=== PATIENT | female | born 1985 | race Hispanic/Latino ===

== ENCOUNTER 2024-01-28 06:02 | Emergency (ER) | payer MEDICAID, OTHER ==
[~2024-01-28] VITALS: Ht 154.9 cm; Wt 102.5 kg
[2024-01-28 07:30] LABS: CREATININE 0.8 mg/dL (0.5-1.0)
[2024-01-28 07:30] LABS: BASOPHILS # (AUTO) 0.04 K/uL (0.00-0.20); BASOPHILS % (AUTO) 0.5 % (0.0-5.0); EOSINOPHILS # (AUTO) 0.27 K/uL (0.00-0.70); EOSINOPHILS % (AUTO) 3.3 % (0.0-8.0); HEMATOCRIT 41.3 % (36-48); IMMATURE GRANULOCYTE ABSOLUTE 0.02 K/uL (0-1); LYMPHOCYTES # (AUTO) 2.1 K/uL (1.0-4.8); LYMPHOCYTES % (AUTO) 25.4 % (21.0-51.0); MEAN CORPUSCULAR HEMOGLOBIN 30.4 pg (27.0-33.0); MEAN CORPUSCULAR HGB CONC 33.2 g/dL (32.0-36.0); MEAN CORPUSCULAR VOLUME 91.6 fL (79-99); MONOCYTES # (AUTO) 0.6 K/uL (0.1-1.0); MONOCYTES % (AUTO) 7.4 % (3.0-13.0); NEUTROPHILS # (AUTO) 5.1 K/uL (1.8-7.7); NEUTROPHILS % (AUTO) 63.2 % (40.0-77.0); PLATELET COUNT (AUTO) 330 K/uL (130-400); RED BLOOD CELL COUNT(AUTO) 4.51 MIL/uL (4.00-5.50); RED CELL DISTRIBUTION WIDTH 12.1 % (11.0-15.5); WHITE BLOOD COUNT (AUTO) 8.1 K/uL (4.8-10.8)
--- NOTE | 2024-01-28 07:32 | ERN ---
General Chief Complaint: Abdominal Pain Stated Complaint: C/O ABD PAIN WITH N X V ONSET 0500 THIS AM Time Seen by MD: 07:12 Source: patient History of Present Illness Initial Comments Patient is a 38-year-old female coming in to be evaluated for abdominal pain. Patient states that the pain began earlier this morning at five in the a.m. she localizes the pain in the right upper quadrant epigastric region she quantifies it at 8/10. She also states that she has been having this pain before. Allergies: Coded Allergies: No Known Drug Allergies (Unverified Allergy, Unknown, 11/01/15) Home Meds No Active Prescriptions or Reported Meds Past Medical History Past Medical History: No Pertinent History Past Surgical History: Unknown ROS Dictation CONSTITUTIONAL: No chills, no fever, no weakness, no diaphoresis, no malaise. HEAD/FACE: No signs of trauma. EENT: No eye pain, no blurred vision, no tearing, no double vision, no ear pain, no ear discharge, no nose pain, no nasal congestion, no throat pain, no throat swelling, no mouth pain. RESPIRATORY: No cough, no orthopnea, no SOB, no stridor, no wheezing. CARDIOVASCULAR: No chest pain, no edema, no palpitations, no syncope. GASTROINTESTINAL/ABDOMINAL: abdominal pain, no constipation, no diarrhea, nausea, no vomiting. GENITOURINARY: No abnormal discharge, no dysuria, no frequent urination, no hematuria. No complaints of pain in the genitals. MUSCULOSKELETAL: No back pain, no gout, no joint pain, no joint swelling, no muscle pain, no muscle stiffness, no neck pain. INTEGUMENTARY: No change in color, no change in hair/nails, no dryness, no lesion, no lumps, no rash. NEUROLOGICAL/PSYCH: No anxiety, not depressed, no emotional problem, no headache, no numbness, no pre-existing deficit, no history of seizures, no tremors, no weakness. HEMATOLOGIC/LYMPHATIC: Not anemic, no history of blood clots, no apparent bleeding, no bruising, glands not swollen. All Systems Negative, Except as Noted. Physical Exam Physical Exam Dictation VITAL SIGNS: Reviewed. GENERAL APPEARANCE: Alert, oriented x3, no acute distress, obese. HEAD AND FACE: Non-traumatic. EYES: PERRL, pink conjunctivas, eyelid no trauma, anterior chamber clear. EARS: Pinnas intact and no signs of trauma or erythema. Ear canals clear and no discharge. TMs no erythema. NOSE: No discharge, no bleeding. OROPHARYNX: Mouth normal, teeth no caries, tongue pink. Pharynx clear, no erythema. Tonsils no exudates, no abscesses noted. Mucous membrane moist. NECK: Supple, non-tender, no thyromegaly, no masses, no JVD, no bruits. BREAST: Deferred. CHEST: No tenderness, no crepitus, no paradoxical movement, no retractions. LUNGS: Clear, well-ventilated, symmetric, no rales, no wheezing, no rhonchi, no stridor, good breath sounds bilaterally. HEART: Regular rate, regular rhythm, no murmur, no gallops. VASCULAR: No peripheral edema. ABDOMEN: Soft, positive bowel sounds, nondistended, no guarding, right upper quadrant pain reproducible on palpation, epigastric pain reproducible on palpation, no rebound, no masses no hepatomegaly, no splenomegaly, no Ford's sign, no hernias. RECTAL: Deferred. GENITAL: Deferred. NEUROLOGICAL: Normal speech, gross motor function intact, gross sensory function intact. MUSCULOSKELETAL: Neck nontender, full range of motion, back nontender, full range of motion. EXTREMITIES: Nontender, full range of motion. SKIN: Color pink, dry, no turgor, no rash, no lacerations, no abrasions, no contusions. LYMPHATICS: Deferred. Results Laboratory and Microbiology Lab and Micro Result Laboratory Tests Test 01/28/24 06:19 01/28/24 06:30 01/28/24 07:20 01/28/24 07:33 Urine Color LIGHT-YELLOW (YELLOW) Urine Appearance CLEAR (CLEAR) Urine pH 5.0 (5.0-8.0) Urine Specific [place] 1.024 (1.001-1.031) Urine Protein NEGATIVE mg/dL (NEGATIVE) Urine Glucose (UA) NEGATIVE mg/dL (NEGATIVE) Urine Ketones NEGATIVE mg/dL (NEGATIVE) Urine Occult Blood SMALL (NEGATIVE) H Urine Nitrate NEGATIVE (NEGATIVE) Urine Bilirubin NEGATIVE mg/dL (NEGATIVE) Urine Urobilinogen 0.2 mg/dL (0.2-1.0) Urine Leukocyte Esterase NEGATIVE Jessica/uL Sodium Level 139 mmol/L (136-145) 140 mmol/L (136-145) Potassium Level 4.0 mmol/L (3.5-5.1) 4.4 mmol/L (3.5-5.1) Chloride Level 105 mmol/L (101-111) 104 mmol/L (101-111) Carbon Dioxide Level 28 mmol/L (21-32) 29 mmol/L (21-32) Blood Urea Nitrogen 16 mg/dL (7-18) 15 mg/dL (7-18) Creatinine 0.8 mg/dL (0.5-1.0) 0.8 mg/dL (0.5-1.0) Glomerular Filtration Rate Calc 97 mL/min (>90) 97 mL/min (>90) Random Glucose 113 mg/dL (70-105) H 115 mg/dL (70-105) H Total Calcium 8.7 mg/dL (8.5-10.1) 8.9 mg/dL (8.5-10.1) Lipase 38 U/L (16-77) White Blood Count 8.1 K/uL (4.8-10.8) Red Blood Count 4.51 MIL/uL (4.00-5.50) Hemoglobin 13.7 g/dL (12.0-16.0) Hematocrit 41.3 % (36-48) Mean Corpuscular Volume 91.6 fL (79-99) Mean Corpuscular Hemoglobin 30.4 pg (27.0-33.0) Mean Corpuscular Hemoglobin Concent 33.2 g/dL (32.0-36.0) Red Cell Distribution Width 12.1 % (11.0-15.5) Platelet Count 330 K/uL (130-400) Mean Platelet Volume 9.0 fL (7.5-10.5) Immature Granulocyte % (Auto) 0.2 % (0-1) Neutrophils (%) (Auto) 63.2 % (40.0-77.0) Lymphocytes (%) (Auto) 25.4 % (21.0-51.0) Monocytes (%) (Auto) 7.4 % (3.0-13.0) Eosinophils (%) (Auto) 3.3 % (0.0-8.0) Basophils (%) (Auto) 0.5 % (0.0-5.0) Neutrophils # (Auto) 5.1 K/uL (1.8-7.7) Lymphocytes # (Auto) 2.1 K/uL (1.0-4.8) Monocytes # (Auto) 0.6 K/uL (0.1-1.0) Eosinophils # (Auto) 0.27 K/uL (0.00-0.70) Basophils # (Auto) 0.04 K/uL (0.00-0.20) Absolute Immature Granulocyte (auto 0.02 K/uL (0-1) Nucleated Red Blood Cells 0.0 % (0.0-0.19) Total Bilirubin 0.3 mg/dL (0.2-1.0) Aspartate Amino Transf (AST/SGOT) 21 U/L (10-37) Alanine Aminotransferase (ALT/SGPT) 25 U/L (12-78) Alkaline Phosphatase 75 U/L (50-136) Troponin I High Sensitivity 5 ng/L (4-50) Total Protein 7.0 g/dL (6.0-8.3) Albumin 3.3 g/dL (3.5-5.0) L EKG/XRAY/US/CT/MRI EKG Comment 01/28/2024 time 7:33 a.m. Ventricular rate [address] wave elevation or depression DE 134 Ultrasound Comment Ultrasound right upper quadrant-gallstones no pericholecystic fluid no congestion no common bile duct dilation MDM MDM: Differential diagnosis: Biliary colic, cholelithiasis, cholecystitis Patient is a 38-year-old female coming in to be evaluated for right upper quadrant and epigastric discomfort. Upon evaluation laboratory workup and ultrasound negative for acute findings. There is a caused stone present the fundus of the gallbladder but not of the neck of the gallbladder. I will advised patient to follow up with surgeon for continued observation and monitoring as well as PCP. Patient will be discharged in stable condition with a diagnosis of cholelithiasis. ED Course Orders Procedure Category Date Status Time Vital Signs Per CPOE 01/28/24 Transmitted Routine 06:08 Saline Lock Iv CPOE 01/28/24 Transmitted 06:08 Cbc With Differential LAB 01/28/24 Complete 06:08 Lipase LAB 01/28/24 Complete 06:08 Urinalysis Profile LAB 01/28/24 In Process 06:08 Basic Metabolic Panel LAB 01/28/24 Complete 06:08 Comprehensive LAB 01/28/24 Complete Metabolic Panel 07:25 Troponin I High LAB 01/28/24 Complete Sensitivity 07:25 12 Lead Ekg Tracing- EKG 01/28/24 Complete Technical 07:25 0.9%Nacl 1000ml (Ns PHA 01/28/24 Complete 1000ml) 07:30 Ondansetron 4mg Inj PHA 01/28/24 Complete (Zofran 4mg Inj) 07:30 Lidocaine Hcl 2% PHA 01/28/24 Complete Viscous (Lidocaine Hcl 07:30 Mag/Alum/Simeth 30ml PHA 01/28/24 Complete (Maalox Plus 30ml) 07:30 Pantoprazole 40mg Inj PHA 01/28/24 Complete (Protonix 40mg Inj 07:30 Us Abdominal Ruq\Ltd US 01/28/24 Taken 07:50 Current Medications Medications (Trade) Dose Ordered Sig/Loan Route PRN Reason Start Time Stop Time Status Last Admin Dose Admin Al Hydroxide/Mg Hydroxide (MAALox PLUS 30ML) 30 ml ONCE ONCE PO 01/28/24 07:30 01/28/24 07:31 DC 01/28/24 07:39 Lidocaine HCl (Lidocaine HCl 2% Viscous) 10 ml ONCE ONCE PO 01/28/24 07:30 01/28/24 07:31 DC 01/28/24 07:39 Ondansetron HCl (zoFRAN 4MG INJ) 4 mg ONCE ONCE IVP 01/28/24 07:30 01/28/24 07:31 DC 01/28/24 07:40 Pantoprazole Sodium (PROTonix 40MG INJ) 40 mg ONCE ONCE IVP 01/28/24 07:30 01/28/24 07:31 DC 01/28/24 07:39 Sodium Chloride 1,000 ml @ 0 mls/hr ONCE ONCE IV 01/28/24 07:30 01/28/24 07:31 DC 01/28/24 07:39 Vital Signs Date Time Temp Pulse Resp B/P (MAP) Pulse Ox O2 Delivery O2 Flow Rate FiO2 01/28/24 07:45 97.3 64 20 123/80 97 Room Air* 0 21 01/28/24 06:09 98.8 72 24 123/84 99 Room Air DX & DISP Disposition: Discharge Departure Impression: Primary Impression: Cholelithiasis Additional Impression: Biliary colic Condition: Stable Scripts No Active Prescriptions or Reported Meds Additional Instructions: FOLLOW-UP WITH PRIMARY CARE PROVIDER IN 1 TO 2 DAYS. TAKE MEDICATIONS DIRECTED HERE IN THE EMERGENCY ROOM. OKAY TO CONTINUE HOME MEDICATIONS UNLESS OTHERWISE DISCUSSED DURING YOUR VISIT IN THE EMERGENCY ROOM TODAY. RETURN TO YOUR NEAREST EMERGENCY ROOM IF SYMPTOMS WORSEN OR IF THERE IS NO IMPROVEMENT. CALL 911 IF YOU NEED IMMEDIATE ASSISTANCE. TAKE TYLENOL MBQD-MIW-ALLIFUN NEEDED AND IF NO CONTRAINDICATIONS ARE PRESENT. INCREASE ORAL HYDRATION. A WOUND CULTURE OR URINE CULTURE WAS ORDERED HERE IN THE EMERGENCY ROOM DEPARTMENT PLEASE FOLLOW-UP WITH PRIMARY CARE PROVIDER AND ADVISE THEM TO GET REPEAT PORTS FROM OUR FACILITY. IF YOU HAD ANY LATISHA WRAP/SPLINTS THAT WERE APPLIED HERE, PLEASE DO NOT REMOVE THEM UNTIL YOU SEE YOUR PRIMARY CARE OR SPECIALTY. Referrals: Referrals: MARLEE CAMACHO MD (PCP) CRICKET KEARNS MD Time of Disposition: 08:37 RUPINDER MORE MD Jan 28, 2024 07:31
[2024-01-28] MEDS: LIDOCAINE HCL 2% VISCOUS 15 ML UDCUP PO ONE (07:39)
[2024-01-28] MEDS: PANTOPrazole 40 MG/VIAL IVP ONE (07:39)
[2024-01-28] MEDS: 0.9%NACL 1000ML 1,000 ML IV ONE (07:39)
[2024-01-28] MEDS: MAG/ALUM/SIMETH 30 ML UDCUP PO ONE (07:39)
[2024-01-28] MEDS: ondanSETRON 4MG INJ IVP ONE (07:40)
[2024-01-28 07:55] LABS: APPEARANCE,URINE CLEAR (CLEAR); BILIRUBIN,URINE NEGATIVE (NEGATIVE); COLOR,URINE LIGHT-YELLOW (YELLOW); GLUCOSE, URINE (UA) NEGATIVE (NEGATIVE); KETONES,URINE NEGATIVE (NEGATIVE); LEUKOCYTE ESTERASE ,URINE NEGATIVE Leu/uL (NEGATIVE); NITRATE,URINE NEGATIVE (NEGATIVE); OCCULT BLOOD,URINE SMALL (NEGATIVE); PROTEIN,URINE NEGATIVE (NEGATIVE); UROBILINOGEN,URINE 0.2 mg/dL (0.2-1.0)
[2024-01-28 07:56] LABS: ADD UA MICROSCOPIC YES
--- NOTE | 2024-01-28 07:57 | EKG ---
[facility] Test Date: 2024-01-28 Test Time: 07:33:55 Pat Name: ALISON MUKHERJEE Department: ED Room: Gender: F Training Representative: [id number] : 1985 Requested By: URPINDER MORE Order Number: [id number] Reading MD: America Fraga Measurements Intervals [place] Rate: 57 P: 29 OK: 134 QRS: 9 QRSD: 88 T: 17 QT: 428 QTc: 416 Interpretive Statements Sinus rhythm No previous ECG available for comparison Electronically Signed On 01-28-2024 09:19:52 RESUME SPECIALIST by America Fraga Please click the below link to view image of tracing.
[2024-01-28 08:11] LABS: ALBUMIN 3.3 g/dL (3.5-5.0); BILIRUBIN,TOTAL 0.3 mg/dL (0.2-1.0); CREATININE 0.8 mg/dL (0.5-1.0); POTASSIUM 4.4 mmol/L (3.5-5.1)
[2024-01-28 08:12] LABS: MUCUS,URINE RARE LPF (None Seen); OTHER CASTS, URINE 1 /LPF (None Seen); SQUAMOUS EPITHELIAL CELL,UR RARE /HPF (0-2); WBC,URINE 0-1 /HPF (0-1)
[2024-01-28 08:39] VITALS: BP 122/80; PULSE 66; RESP 20; TEMP 97.4; O2SAT 97
--- NOTE | 2024-01-28 08:43 | HMCIMG ---
US ABDOMINAL RUQ\E\LTD HISTORY: Pain COMPARISON: None TECHNIQUE: Right upper quadrant abdominal ultrasound study was performed. FINDINGS: Liver measures 17.5 cm. The visualized portion of the pancreas is within normal limits. Liver is echogenic consistent with liver parenchymal disease. Gallstone is seen in the gallbladder. Common duct measures 4 mm. No evidence of gallbladder wall thickening is seen. Right kidney measures 0.5 x 3.8 x 4.5 cm. No hydronephrosis is seen of the right kidney. IMPRESSION: 1. Gallstone in the gallbladder. No ductal dilatation is seen. 2. No hydronephrosis is seen.
== END 2024-01-28 08:46 | disposition home or self-care (01) ==
LOC: EDH 06:02
DX: K80.20 Calculus of gallbladder without cholecystitis without obstruction (principal); K80.50 Calculus of bile duct without cholangitis or cholecystitis without obstruction
CPT/HCPCS: 99285; 96374; 76705; 96375; 84484; 80053; 83690; 85025; 81001; 36415; 93005; 80048; J7030; J2405; J2470

== ENCOUNTER → 2024-11-22 | Outpatient (CLI) | payer OTHER ==
--- NOTE | 2024-11-22 17:21 | HMCIMG ---
EXAM: US Abdomen complete CLINICAL HISTORY: Upper abdominal pain, unspecified TECHNIQUE: Real-time ultrasound of the abdomen (complete) with image documentation. COMPARISON: None provided. FINDINGS: LIVER: Measures 16 cm, mildly enlarged. Slightly echogenic, suggesting fatty infiltration. Hepatomegaly with mild increased echogenicity, suggestive of hepatic steatosis. GALLBLADDER: Distended ( 12 cm). Wall thickness 3 mm. Large nonmobile stone noted. No pericholecystic fluid. Distended gallbladder with large nonmobile gallstone. Correlate clinically for cholecystitis. COMMON BILE DUCT: Measures 3 mm (within normal limits). No biliary ductal dilatation. PANCREAS: Within normal limits. Normal sonographic appearance of pancreas. KIDNEYS: Right Kidney: 10.3 x 4.3 x 4.5 cm. Normal echogenicity, no hydronephrosis. Left Kidney: 10.3 x 5.8 x 4.6 cm. Normal echogenicity, no hydronephrosis. Normal sonographic appearance of kidneys. SPLEEN: Measures 10.7 cm (normal). Normal sonographic appearance of spleen. AORTA: Within normal limits. Normal sonographic appearance of aorta. IVC: Unremarkable as visualized. Within normal limits. Normal sonographic appearance of IVC. IMPRESSION: 1. Distended gallbladder with large nonmobile gallstone. No pericholecystic fluid. Correlate clinically for cholecystitis. 2. Hepatomegaly with mild increased echogenicity, suggestive of hepatic steatosis. /[place]
== END | disposition home or self-care (01) ==
LOC: RAH 08:51
PROVIDERS: ATTEND Family Medicine
DX: K80.20 Calculus of gallbladder without cholecystitis without obstruction (principal); K76.0 Fatty (change of) liver, not elsewhere classified; K82.8 Other specified diseases of gallbladder; R16.0 Hepatomegaly, not elsewhere classified; R10.10 Upper abdominal pain, unspecified
CPT/HCPCS: 76700